=== PATIENT | female | born 1995 | race Hispanic/Latino ===

== ENCOUNTER 2020-05-13 12:50 | Emergency (ER) | payer BC ==
[~2020-05-13] VITALS: Ht 165.1 cm; Wt 56.7 kg
[~2020-05-13 12:50] MED LIST: NAPROSYN500 MG PO
[2020-05-13 13:31] LABS: BASOPHILS # (AUTO) 0.1 (0.0-0.1); BASOPHILS % 1.5 % (0.0-1.0); EOSINOPHILS # (AUTO) 0.3 (0.0-0.4); EOSINOPHILS % 6.5 % (0.0-6.0); HEMATOCRIT 37.2 % (34.2-44.1); HEMOGLOBIN 12.5 g/dL (12.0-16.0); LYMPHOCYTES # (AUTO) 1.6 (1.0-3.2); MEAN CORPUSCULAR HEMOGLOBIN 30.3 pg (28-32); MEAN CORPUSCULAR HGB CONC 33.6 g/dL (31-35); MEAN CORPUSCULAR VOLUME 90.1 fL (81-99); MONOCYTES # (AUTO) 0.5 (0.2-0.8); MONOCYTES % 9.4 % (4.4-11.3); NEUTROPHILS # (AUTO) 2.3 (2.1-6.9); NEUTROPHILS % 48.4 % (38.7-80.0); PLATELET COUNT 228 x10e3/uL (140-360); RED BLOOD COUNT 4.13 x10e6/uL (3.6-5.1); RED CELL DISTRIBUTION WIDTH 12.2 % (11.7-14.4)
[2020-05-13 13:47] LABS: BILIRUBIN,URINE NEGATIVE (NEGATIVE); CLARITY,URINE SL CLOUDY (CLEAR); COLOR,URINE YELLOW (YELLOW); KETONES,URINE NEGATIVE (NEGATIVE); LEUKOCYTE ESTERASE ,URINE NEGATIVE (NEGATIVE); NITRITE,URINE NEGATIVE (NEGATIVE); PREGNANCY TEST, URINE NEGATIVE (NEGATIVE); PROTEIN,URINE DIPSTICK 1+ (NEGATIVE); URINE UROBILINOGEN 1 mg/dL (0.2 - 1)
--- NOTE | 2020-05-13 13:48 | NUR ---
corporate technical recruiter notified that patient has sonograms ordered by Dr. Mayo
[2020-05-13 13:50] LABS: BACTERIA,URINE FEW /HPF; EPITHELIAL CELLS,URINE MODERATE /LPF; MUCUS,URINE MODERATE (RARE); RBC,URINE 0-5 /HPF (0-5); WBC,URINE (MAN) 0-5 /HPF (0-5)
--- NOTE | 2020-05-13 13:52 | Emergency Department Note ---
History of Present Illnes History of Present Illness Chief Complaint: Abdominal Complaints History of Present Illness This is a 25 year old female arrives to the ED with complaints of vaginal bleeding and pain for the past 2 months. Chief Complaint Comment Patient in from home with complaints of lower abdominal pain and pelvic area pain that goes along with her menstrual cycles over the last two months. Patient states that she has always had pain with her cycles but states that it has gotten worse over the last two months to the point of being severe. Patient denies urinary symptoms and abnormal vaginal discharge. Patient is currently on her period and has noted increased bleeding with the last few cycles as well. ER MD in triage for initial eval. Historian: Patient Arrival Mode: Car Officer Lieutenant Required: No Onset (how long ago): month(s) Radiation: Reports non-radiation Duration (how long): month(s) Progression: waxing and waning Chronicity: new Context: Denies recent illness, Denies recent immobilization, Denies recent travel, Denies trauma/injury Relieving factors: none Past Medical/Family History Physician Review I have reviewed the patient's past medical and family history. Any updates have been documented here. Past Medical History Recent Fever: No Clinical Suspicion of Infectio: No New/Unexplained Change in Ment: No Past Medical History: None Other Surgery: WISDOM TEETH Review of Systems Review of Systems Constitutional: Reports no symptoms EENTM: Reports no symptoms Cardiovascular: Reports no symptoms Respiratory: Reports no symptoms Gastrointestinal: Reports as per HPI, Reports other (vaginal bleeding and pelvic pain) Genitourinary: Reports no symptoms Musculoskeletal: Reports no symptoms Integumentary: Reports no symptoms Neurological: Reports no symptoms Psychological: Reports no symptoms Endocrine: Reports no symptoms Hematological/Lymphatic: Reports no symptoms Physical Exam Related Data Allergies: Coded Allergies: amoxicillin (Verified Allergy, Unknown, 08/02/19) Triage Vital Signs Vital Signs Date Time Temp Pulse Resp B/P (MAP) Pulse Ox O2 Delivery O2 Flow Rate FiO2 05/13/20 13:00 98.3 83 17 128/73 100 Room Air Vital signs reviewed: Yes Physical Exam CONSTITUTIONAL Constitutional: Present well-developed, Present well-nourished HENT HENT: Present normocephalic, Present atraumatic, Present oropharynx clear/moist, Present nose normal HENT L/R: Present left ext ear normal, Present right ext ear normal EYES Eyes: Reports PERRL, Reports conjunctivae normal NECK Neck: Present ROM normal PULMONARY Pulmonary: Present effort normal, Present breath sounds normal CARDIOVASCULAR Cardiovascular: Present regular rhythm, Present heart sounds normal, Present capillary refill normal, Present normal rate GASTROINTESTINAL Abdominal: Present soft, Present nontender, Present bowel sounds normal GENITOURINARY Genitourinary: Present exam deferred SKIN Skin: Present warm, Present dry MUSCULOSKELETAL Musculoskeletal: Present ROM normal NEUROLOGICAL Neurological: Present alert, Present oriented x 3, Present no gross motor or sensory deficits PSYCHOLOGICAL Psychological: Present mood/affect normal, Present judgement normal Results Laboratory Lab results reviewed: Yes Laboratory comments Laboratory Tests Test 05/13/20 13:24 05/13/20 13:12 Urine Color Yellow (YELLOW) Urine Clarity Sl cloudy (CLEAR) Urine pH 8.5 (5 - 7) Urine Specific Withams 1.025 (1.010-1.025) Urine Protein 1+ (NEGATIVE) Urine Glucose (UA) Negative (NEGATIVE) Urine Ketones Negative (NEGATIVE) Urine Blood Negative (NEGATIVE) Urine Nitrite Negative (NEGATIVE) Urine Bilirubin Negative (NEGATIVE) Urine Urobilinogen 1 mg/dL (0.2 - 1) Urine Leukocyte Esterase Negative (NEGATIVE) Urine RBC 0-5 /HPF (0-5) Urine WBC 0-5 /HPF (0-5) Urine Epithelial Cells Moderate /LPF (NONE) Urine Bacteria Few /HPF (NONE) Urine Mucus Moderate (RARE) Urine Test Negative (NEGATIVE) White Blood Count 4.79 x10e3/uL (4.8-10.8) Red Blood Count 4.13 x10e6/uL (3.6-5.1) Hemoglobin 12.5 g/dL (12.0-16.0) Hematocrit 37.2 % (34.2-44.1) Mean Corpuscular Volume 90.1 fL (81-99) Mean Corpuscular Hemoglobin 30.3 pg (28-32) Mean Corpuscular Hemoglobin Concent 33.6 g/dL (31-35) Red Cell Distribution Width 12.2 % (11.7-14.4) Platelet Count 228 x10e3/uL (140-360) Neutrophils (%) (Auto) 48.4 % (38.7-80.0) Lymphocytes (%) (Auto) 34.0 % (18.0-39.1) Monocytes (%) (Auto) 9.4 % (4.4-11.3) Eosinophils (%) (Auto) 6.5 % (0.0-6.0) Basophils (%) (Auto) 1.5 % (0.0-1.0) Neutrophils # (Auto) 2.3 (2.1-6.9) Lymphocytes # (Auto) 1.6 (1.0-3.2) Monocytes # (Auto) 0.5 (0.2-0.8) Eosinophils # (Auto) 0.3 (0.0-0.4) Basophils # (Auto) 0.1 (0.0-0.1) Absolute Immature Granulocyte (auto 0.01 x10e3/uL (0-0.1) Sodium Level 140 mmol/L (136-145) Potassium Level 3.6 mmol/L (3.5-5.1) Chloride Level 105 mmol/L (98-107) Carbon Dioxide Level 27 mmol/L (22-29) Anion Gap 11.6 mmol/L (8-16) Blood Urea Nitrogen 11 mg/dL (7-26) Creatinine 0.83 mg/dL (0.57-1.11) Estimat Glomerular Filtration Rate > 60 ML/MIN (60-) BUN/Creatinine Ratio 13 (6-25) Glucose Level 84 mg/dL (74-118) Calcium Level 9.2 mg/dL (8.4-10.2) Total Bilirubin 0.8 mg/dL (0.2-1.2) Aspartate Amino Transf (AST/SGOT) 14 IU/L (5-34) Alanine Aminotransferase (ALT/SGPT) 9 IU/L (0-55) Alkaline Phosphatase 57 IU/L (40-150) Total Protein 8.2 g/dL (6.5-8.1) Albumin 4.7 g/dL (3.5-5.0) Globulin 3.5 g/dL (2.3-3.5) Albumin/Globulin Ratio 1.3 (0.8-2.0) Imaging Imaging results reviewed: Yes Impressions LOWER THORAX: Unremarkable. HEPATOBILIARY: No focal hepatic lesions. Gallbladder is unremarkable. No biliary ductal dilatation. Portal vein is patent. SPLEEN: No splenomegaly. PANCREAS: No focal masses or ductal dilatation. ADRENALS: No adrenal nodules. KIDNEYS/URETERS: Symmetric cortical has and without hydronephrosis or suspicious enhancing mass. Ureters are not dilated. Negative for surrounding inflammatory changes. PELVIC ORGANS/BLADDER: Uterus is unremarkable. Ovaries are unremarkable and better evaluated on separately reported ultrasound. PERITONEUM/RETROPERITONEUM: No free air or fluid. LYMPH NODES: No lymphadenopathy. VESSELS: Unremarkable. GI TRACT: Bowel loops are suboptimally evaluated lack of oral contrast. Bowel loops are also decompressed limiting evaluation. Normal appendix is noted. Negative for obstruction. No surrounding inflammatory changes are noted. BONES AND SOFT TISSUES: Unremarkable. IMPRESSION: Negative for acute abdominopelvic process. Signed by: Lam Raymundo MD on 05/13/2020 3:01 PM IMPRESSION : 1. No evidence of ovarian torsion at the time of examination. 2. Overall unremarkable ultrasound of the uterus and ovaries. Signed by: Lam Raymundo MD on 05/13/2020 2:44 PM Assessment & Plan Medical Decision Making MDM 24-year-old well-appearing female arrived to the ED with complaints of vaginal bleeding that feels heavier than usual. CT abdomen and pelvis and ultrasound unremarkable. Patient stable for discharge home. Assessment & Plan Final Impression: (1) DUB (dysfunctional uterine bleeding) Depart Disposition: HOME, SELF-CARE Last Vital Signs Date Time Temp Pulse Resp B/P (MAP) Pulse Ox O2 Delivery O2 Flow Rate FiO2 05/13/20 13:00 98.3 83 17 128/73 100 Room Air Home Meds Active Scripts Naproxen (NAPROSYN) 500 Mg Tablet, 500 MG PO BID PRN for pain for 7 Days, #15 Prov:JARRETT BARAJAS MD 08/02/19 TAVARES ELIAS DO May 13, 2020 13:56
[2020-05-13 13:54] LABS: ALANINE AMINOTRANSFERASE 9 IU/L (0-55); ALBUMIN 4.7 g/dL (3.5-5.0); ALBUMIN/GLOBULIN RATIO 1.3 (0.8-2.0); ALKALINE PHOSPHATASE 57 IU/L (40-150); ANION GAP 11.6 mmol/L (8-16); BLOOD UREA NITROGEN 11 mg/dL (7-26); BUN/CREATININE RATIO 13 (6-25); CALCIUM 9.2 mg/dL (8.4-10.2); CARBON DIOXIDE 27 mmol/L (22-29); CHLORIDE 105 mmol/L (98-107); CREATININE, SERUM 0.83 mg/dL (0.57-1.11); EST GLOMERULAR FILTRATION RATE > 60 ML/MIN (60-); GLUCOSE 84 mg/dL (74-118); POTASSIUM 3.6 mmol/L (3.5-5.1); SODIUM 140 mmol/L (136-145)
[2020-05-13] MEDS ORDERED: SODIUM CHLORIDE 0.9% 50ML 50 ML ONE (14:03)
[2020-05-13] MEDS ORDERED: IOPAMIDOL 370 MG/ML 200 ML INFUS..BTL INJ ONE (14:03)
--- NOTE | 2020-05-13 14:47 | Diagnostic Imaging Report ---
HISTORY : Pelvic pain COMPARISON : CT dated the same day Comment: Ultrasound examination of the pelvis was performed transabdominally and transvaginally. Color Doppler evaluation of the ovaries is performed. The uterus is homogeneous in echotexture. The uterus measures 6.9 x 3.8 x 4.8 cm. The endometrial stripe appears unremarkable and measures 0.3 cm in maximum thickness. The right ovary measures 3.3 x 2.0 x 2.4 cm. The left ovary measures 3.0 x 1.9 x 2.2 cm. Arterial and venous flow is identified to both ovaries at the time of this examination. There is no evidence of fluid in the cul-de-sac. IMPRESSION : 1. No evidence of ovarian torsion at the time of examination. 2. Overall unremarkable ultrasound of the uterus and ovaries. Signed by: Lam Raymundo MD on 05/13/2020 2:44 PM
--- NOTE | 2020-05-13 15:05 | Diagnostic Imaging Report ---
CT of the abdomen and pelvis with contrast TECHNIQUE: CT of the abdomen and pelvis WITH intravenous contrast and WITHOUT oral contrast. Dose modulation, iterative reconstruction, and/or weight-based adjustment of the mA/kV was utilized to reduce the radiation dose to as low as reasonably achievable. IV CONTRAST: 100 mL of Isovue-370 ORAL CONTRAST: None RADIATION DOSE: Total DLP: 445 mGy*cm COMPLICATIONS: None INDICATION: ^Y ^pelvic pain ^[id number] ^1415. COMPARISON: None. FINDINGS: LOWER THORAX: Unremarkable. HEPATOBILIARY: No focal hepatic lesions. Gallbladder is unremarkable. No biliary ductal dilatation. Portal vein is patent. SPLEEN: No splenomegaly. PANCREAS: No focal masses or ductal dilatation. ADRENALS: No adrenal nodules. KIDNEYS/URETERS: Symmetric cortical has and without hydronephrosis or suspicious enhancing mass. Ureters are not dilated. Negative for surrounding inflammatory changes. PELVIC ORGANS/BLADDER: Uterus is unremarkable. Ovaries are unremarkable and better evaluated on separately reported ultrasound. PERITONEUM/RETROPERITONEUM: No free air or fluid. LYMPH NODES: No lymphadenopathy. VESSELS: Unremarkable. GI TRACT: Bowel loops are suboptimally evaluated lack of oral contrast. Bowel loops are also decompressed limiting evaluation. Normal appendix is noted. Negative for obstruction. No surrounding inflammatory changes are noted. BONES AND SOFT TISSUES: Unremarkable. IMPRESSION: Negative for acute abdominopelvic process. Signed by: Lam Raymundo MD on 05/13/2020 3:01 PM
[2020-05-13 18:13] VITALS: BP 117/63
== END 2020-05-13 18:14 | disposition home or self-care (01) ==
LOC: ER 13:42
DX: N93.8 Other specified abnormal uterine and vaginal bleeding (principal)
CPT/HCPCS: 36415; 74177; 76830; 76856; 80053; 81001; 81025; 85025; 93976; 99284; Q9967